=== PATIENT | male | born 1970 | race African-American/Black ===

== ENCOUNTER 2024-09-14 15:50 | Inpatient (IN) | payer OTHER ==
[~2024-09-14] VITALS: Ht 185.4 cm; Wt 95.3 kg
[2024-09-14 16:30] VITALS: PULSE 97; RESP 18; TEMP 98.3
[2024-09-14 17:01] LABS: BASOPHILS % 0.3 % (0.0-1.0); EOSINOPHILS # (AUTO) 0.1 (0.0-0.4); EOSINOPHILS % 1.9 % (0.0-6.0); HEMATOCRIT 44.5 % (38.2-49.6); HEMOGLOBIN 14.6 g/dL (14.0-18.0); LYMPHOCYTES # (AUTO) 2.3 (1.0-3.2); LYMPHOCYTES % 39.9 % (18.0-39.1); MEAN CORPUSCULAR HEMOGLOBIN 31.4 pg (28-32); MEAN CORPUSCULAR HGB CONC 32.8 g/dL (31-35); MEAN CORPUSCULAR VOLUME 95.7 fL (81-99); MONOCYTES # (AUTO) 0.5 (0.2-0.8); MONOCYTES % 7.9 % (4.4-11.3); NEUTROPHILS # (AUTO) 2.8 (2.1-6.9); NEUTROPHILS % 49.7 % (38.7-80.0); PLATELET COUNT 186 x10e3/uL (140-360); RED BLOOD COUNT 4.65 x10e6/uL (4.3-5.7); RED CELL DISTRIBUTION WIDTH 11.6 % (11.7-14.4); WHITE BLOOD COUNT 5.72 x10e3/uL (4.8-10.8)
[2024-09-14 17:19] LABS: ALBUMIN 3.7 g/dL (3.5-5.0); ANION GAP 13.4 mmol/L (8-16); BILIRUBIN,TOTAL 0.4 mg/dL (0.2-1.2); CALCIUM 9.9 mg/dL (8.4-10.2); CREATININE, SERUM 1.56 mg/dL (0.72-1.25); POTASSIUM 4.4 mmol/L (3.5-5.1); TOTAL PROTEIN 7.4 g/dL (6.5-8.1)
[2024-09-14 17:25] LABS: TROPONIN I 0.029 ng/mL (0-0.300)
[2024-09-14] MEDS: ASPIRIN 81 MG CHEW TAB PO ONE (18:28)
[2024-09-14] MEDS ORDERED: SODIUM CHLORIDE FLUSH 10 ML SYR INJ PRN (18:45)
[2024-09-14] MEDS: FAMOTIDINE 20 MG/2 ML VIAL IV SCH (18:45)
[2024-09-14] MEDS ORDERED: Morphine 4mg INJECTION 4 MG/ML INJ IV PRN (18:45)
[2024-09-14] MEDS ORDERED: DEXTROSE 50% SYRINGE 50 ML IV PRN (18:45)
[2024-09-14] MEDS ORDERED: ONDANSETRON HCL INJ 2MG/ML 2ML 2 MG/ML VIAL IV PRN (18:45)
[2024-09-14 19:11] VITALS: PULSE 80; RESP 18; O2SAT 98
[2024-09-14 20:39] VITALS: BP 141/79; PULSE 74; RESP 20; TEMP 98.3; O2SAT 100
[2024-09-14] MEDS: INSULIN REGULAR, HUMAN 100 UNIT/1 ML SQ SCH (21:00)
[2024-09-14] MEDS: METOPROLOL SUCCINATE 25 MG TAB XL PO SCH (21:30)
[2024-09-14 23:54] VITALS: BP 141/79; PULSE 74; RESP 20; TEMP 98.3; O2SAT 100
[2024-09-15] VITALS (20 sets, daily range): BP systolic 119–142; BP diastolic 57–92; PULSE 64–83; RESP 15–20; TEMP 96.9–98.3; O2SAT 97–100
[2024-09-15] MEDS: SODIUM CHLORIDE 0.9% 1000ML 1,000 ML IV SCH ×2 (00:35→15:45)
[2024-09-15 03:13] LABS: TROPONIN I 0.036 ng/mL (0-0.300)
[2024-09-15 05:26] LABS: BASOPHILS # (AUTO) 0.1 (0.0-0.1); BASOPHILS % 0.7 % (0.0-1.0); EOSINOPHILS # (AUTO) 0.2 (0.0-0.4); EOSINOPHILS % 2.4 % (0.0-6.0); HEMATOCRIT 41.1 % (38.2-49.6); HEMOGLOBIN 13.6 g/dL (14.0-18.0); LYMPHOCYTES # (AUTO) 3.3 (1.0-3.2); LYMPHOCYTES % 45.9 % (18.0-39.1); MEAN CORPUSCULAR HEMOGLOBIN 31.9 pg (28-32); MEAN CORPUSCULAR HGB CONC 33.1 g/dL (31-35); MEAN CORPUSCULAR VOLUME 96.5 fL (81-99); MONOCYTES # (AUTO) 0.6 (0.2-0.8); MONOCYTES % 8.9 % (4.4-11.3); NEUTROPHILS % 41.8 % (38.7-80.0); PLATELET COUNT 170 x10e3/uL (140-360); RED BLOOD COUNT 4.26 x10e6/uL (4.3-5.7); RED CELL DISTRIBUTION WIDTH 11.5 % (11.7-14.4); WHITE BLOOD COUNT 7.16 x10e3/uL (4.8-10.8)
[2024-09-15 05:55] LABS: ALBUMIN 3.3 g/dL (3.5-5.0); ANION GAP 13.3 mmol/L (8-16); BILIRUBIN,TOTAL 0.4 mg/dL (0.2-1.2); CALCIUM 9.4 mg/dL (8.4-10.2); CHOL/HDL RATIO 7.2 (3.9-4.7); CREATININE, SERUM 1.42 mg/dL (0.72-1.25); POTASSIUM 4.3 mmol/L (3.5-5.1); TOTAL PROTEIN 6.5 g/dL (6.5-8.1)
[2024-09-15] MEDS: ASPIRIN 81 MG CHEW TAB PO SCH (09:00)
[2024-09-15] MEDS ORDERED: ASPIRIN 325 MG TAB EC PO SCH (09:00)
[2024-09-15] MEDS: ATORVASTATIN 40 MG TAB PO SCH (09:00)
[2024-09-15 10:03] LABS: FERRITIN 255.31 ng/mL (21.81-274.66)
[2024-09-15] MEDS ORDERED: HEPARIN SOD (PORCINE) 1000 UNIT/ML 30ML ONE (12:46)
[2024-09-15] MEDS ORDERED: HEPARIN SOD/SOD CHLORIDE 2,000 ML ONE (12:47)
[2024-09-15] MEDS ORDERED: VERAPAMIL HCL 2.5 MG/ML 2 ML VIAL ONE (12:47)
[2024-09-15] MEDS ORDERED: LIDOCAINE HCL 2% LOCAL 20 ML VIAL ONE (12:47)
[2024-09-15] MEDS ORDERED: NITROGLYCERIN/D5W 200 MCG/ML 250 ML ONE (12:47)
[2024-09-15] MEDS ORDERED: IOPAMIDOL 370 MG/ML 100 ML INFUS..BTL INJ ONE (12:47)
[2024-09-15] MEDS ORDERED: SODIUM CHLORIDE 0.9% 1000ML 1,000 ML ONE (12:47)
[2024-09-15 13:07] LABS: TROPONIN I 0.031 ng/mL (0-0.300)
[2024-09-15] MEDS ORDERED: MIDAZOLAM HCL 2 MG/2 ML VIAL ONE (13:37)
[2024-09-15] MEDS ORDERED: FENTANYL CITRATE/PF 100MCG/2 ML INJ ONE (13:37)
[2024-09-15] MEDS ORDERED: ASPIRIN 325 MG TAB ONE (14:50)
[2024-09-15] MEDS ORDERED: CLOPIDOGREL BISULFATE 75 MG TAB ONE (14:50)
[2024-09-15] MEDS ORDERED: ADENOSINE 6MG/2ML 1 ML ONE (14:59)
[2024-09-15] MEDS ORDERED: SODIUM CHLORIDE 0.9% 250ML 250 ML ONE (15:00)
[2024-09-15] MEDS ORDERED: TOPROL XL25 MG PO (18:03)
[2024-09-15] MEDS ORDERED: ASPIRIN CHEW81 MG PO (18:03)
[2024-09-15] MEDS ORDERED: PLAVIX75 MG PO (18:03)
[2024-09-15] MEDS ORDERED: JANUMET XR 50-1 EAC1 PO (18:11)
[2024-09-15] MEDS ORDERED: GLIPIZIDE5 MG PO (18:11)
[2024-09-16] VITALS: BP 116/80; PULSE 76; RESP 17; TEMP 97.9; O2SAT 100
[2024-09-16 04:00] VITALS: BP 130/80; PULSE 83; RESP 17; TEMP 97.8; O2SAT 99
[2024-09-16 06:04] LABS: BASOPHILS % 0.4 % (0.0-1.0); EOSINOPHILS # (AUTO) 0.2 (0.0-0.4); EOSINOPHILS % 2.1 % (0.0-6.0); HEMATOCRIT 40.7 % (38.2-49.6); LYMPHOCYTES # (AUTO) 2.3 (1.0-3.2); LYMPHOCYTES % 32.7 % (18.0-39.1); MEAN CORPUSCULAR HEMOGLOBIN 31.7 pg (28-32); MEAN CORPUSCULAR HGB CONC 34.4 g/dL (31-35); MEAN CORPUSCULAR VOLUME 92.1 fL (81-99); MONOCYTES # (AUTO) 0.6 (0.2-0.8); MONOCYTES % 8.6 % (4.4-11.3); NEUTROPHILS # (AUTO) 3.9 (2.1-6.9); NEUTROPHILS % 55.6 % (38.7-80.0); PLATELET COUNT 170 x10e3/uL (140-360); RED BLOOD COUNT 4.42 x10e6/uL (4.3-5.7); RED CELL DISTRIBUTION WIDTH 11.6 % (11.7-14.4); WHITE BLOOD COUNT 7.09 x10e3/uL (4.8-10.8)
[2024-09-16 06:18] LABS: ALBUMIN 3.4 g/dL (3.5-5.0); ALBUMIN/GLOBULIN RATIO 1.1 (0.8-2.0); BILIRUBIN,TOTAL 0.6 mg/dL (0.2-1.2); CALCIUM 9.5 mg/dL (8.4-10.2); CREATININE, SERUM 1.42 mg/dL (0.72-1.25); MAGNESIUM 1.5 MG/DL (1.3-2.1); TOTAL PROTEIN 6.5 g/dL (6.5-8.1)
[2024-09-16 08:00] VITALS: BP 128/83; PULSE 78; RESP 17; TEMP 97.8; O2SAT 99
[2024-09-16] MEDS: CLOPIDOGREL BISULFATE 75 MG TAB PO SCH (09:15)
[2024-09-16 09:16] VITALS: BP 128/83; PULSE 78
[2024-09-16] MEDS ORDERED: LIPITOR20 MG PO (09:45)
== END 2024-09-16 10:08 | disposition home or self-care (01) | DRG 322 ==
LOC: ER 18:04 → ERHOLD 18:40 → MED/SURG 20:00 → OBSVTOIN 09-15 18:02
PROVIDERS: ADMIT Internal Medicine; ATTEND Internal Medicine
PROC: 027136Z Dilation of Coronary Artery, Two Arteries with Three Drug-eluting Intraluminal Devices, Percutaneous Approach (ICD-10-PCS; principal; 2024-09-15)
PROC: 4A023N7 Measurement of Cardiac Sampling and Pressure, Left Heart, Percutaneous Approach (ICD-10-PCS; 2024-09-15)
PROC: B2111ZZ Fluoroscopy of Multiple Coronary Arteries using Low Osmolar Contrast (ICD-10-PCS; 2024-09-15)
DX: I20.89 Other forms of angina pectoris (principal); N17.9 Acute kidney failure, unspecified; E11.65 Type 2 diabetes mellitus with hyperglycemia; I10 Essential (primary) hypertension; E78.2 Mixed hyperlipidemia; D64.9 Anemia, unspecified; Z79.82 Long term (current) use of aspirin; Z79.02 Long term (current) use of antithrombotics/antiplatelets; Z79.84 Long term (current) use of oral hypoglycemic drugs
CPT/HCPCS: 36415; 71045; 76937; 80053; 80061; 82550; 82607; 82728; 82948; 83036; 83540; 83735; 84443; 84466; 84484; 85025; 85347; 92928; 92929; 93005; 93306; 93458; 94799; 99152; 99153; 99284; C1725; C1769; C1874; C1887; G0378; J0153; J1644; J2003; J2250; J7030; J7050; Q9967